=== PATIENT | female | born 1990 | race Two or more races ===

== ENCOUNTER 2016-09-28 22:55 | Emergency (ER) | payer OTHER ==
[~2016-09-28] VITALS: Ht 154.9 cm; Wt 55.3 kg
[~2016-09-28 22:55] MED LIST: HYDR-2758 PO; INSU100I17 SQ; INSU100I27 SQ; LEVO250T25 PO; POLY17PO29 PO; PROM12.553 RC
[2016-09-28 23:34] VITALS: BP 135/84
[2016-09-28] MEDS ORDERED: TRAM50TA PO (23:37)
--- NOTE | 2016-09-28 23:37 | PHYS DOC ---
Past Medical History Past Medical History: Diabetes-Type II, UTI Additional Past Medical Histor: Sepsis Past Surgical History: No Surgical History Alcohol Use: Rarely Drug Use: None Adult General Chief Complaint Chief Complaint: EARACHE/EAR PAIN HPI HPI Patient is a 26 year old female presents to the emergency department with a 2 day history of right ear pain. Patient states was evaluated at urgent care yesterday where she was diagnosed with an abscess in the external canal of the right ureter. Patient states that the pain has persisted and she is using the antibiotic drops as directed. Review of Systems Review of Systems Constitutional: Denies fever or chills [] Eyes: Denies change in visual acuity, redness, or eye pain [] HENT: Denies nasal congestion or sore throat, right ear pain [] Respiratory: Denies cough or shortness of breath [] Cardiovascular: No additional information not addressed in HPI [] GI: Denies abdominal pain, nausea, vomiting, bloody stools or diarrhea [] : Denies dysuria or hematuria [] Musculoskeletal: Denies back pain or joint pain [] Integument: Denies rash or skin lesions [] Neurologic: Denies headache, focal weakness or sensory changes [] Endocrine: Denies polyuria or polydipsia [] Allergies Allergies Allergies Coded Allergies Type Severity Reaction Last Updated Verified No Known Drug Allergies 08/13/15 No Physical Exam Physical Exam Constitutional: Well developed, well nourished, no acute distress, non-toxic appearance. [] HENT: Normocephalic, atraumatic, right external canal, mid canal with a small pustule, there is no surrounding erythema. Eyes: PERRLA, EOMI, conjunctiva normal, no discharge. [] Neck: Normal range of motion, no tenderness, supple, no stridor. [] Cardiovascular:Heart rate regular rhythm, no murmur [] Lungs & Thorax: Bilateral breath sounds clear to auscultation [] Current Patient Data Vital Signs Vital Signs Date Time Temp Pulse Resp B/P (MAP) Pulse Ox O2 Delivery O2 Flow Rate FiO2 09/28/16 23:34 98.4 97 18 99 Room Air 98.4 EKG EKG [] Radiology/Procedures Radiology/Procedures External canal anesthetized with lidocaine, attempted to drain the abscess however the patient was fidgeting and unable to hold still. Unsuccessful and draining the small canal abscess [] Course & Med Decision Making Course & Med Decision Making Pertinent Labs and Imaging studies reviewed. (See chart for details) [] Dragon Disclaimer Dragon Disclaimer This electronic medical record was generated, in whole or in part, using a voice recognition dictation system. Departure Departure Impression: Primary Impression: Abscess of right ear canal Disposition: HOME, SELF-CARE Condition: STABLE Referrals: NO PCP (PCP) [facility] [place] Patient Instructions: Tramadol tablets Additional Instructions: Continue antibiotic eardrops as prescribed by the provider that you saw yesterday. warm packs to affected ear Scripts Tramadol Hcl (TRAMADOL HCL) 50 Mg Tablet 50 MG PO q 6 hours Y for PAIN, #10 TAB 0 Refills Prov: ZEB CERON APRN 09/28/16 ZEB CERON APRN Sep 28, 2016 23:37
[2016-09-29] MEDS ORDERED: traMADol 50 MG TABLET PO ONE (00:15)
== END 2016-09-29 00:09 | disposition home or self-care (01) ==
LOC: ER 22:55
DX: H66.41 Suppurative otitis media, unspecified, right ear (principal); E11.9 Type 2 diabetes mellitus without complications; Z87.440 Personal history of urinary (tract) infections
CPT/HCPCS: 99284